=== PATIENT | male | born 1970 | race African-American/Black ===

== ENCOUNTER 2024-08-16 05:51 | Emergency (ER) | payer OTHER, SELFPAY ==
[2024-08-16 05:59] VITALS: BP 198/114; PULSE 118; RESP 20; TEMP 36.5; O2SAT 96
[2024-08-16 08:25] LABS: Glucose Point of Care 116 mg/dl (65-105)
[2024-08-16 08:27] VITALS: O2SAT 99
[2024-08-16 08:28] VITALS: BP 192/123; PULSE 91; RESP 16; O2SAT 97
[2024-08-16] MEDS: levETIRAcetam 500 MG TABLET 1000 MG PO (08:33)
[2024-08-16] MEDS: LOSARTAN POTASSIUM 50 MG TABLET PO (08:33)
--- NOTE | 2024-08-16 08:51 | PC.NURSE ---
Called care coordination for cab voucher for pt.
[2024-08-16 08:52] VITALS: BP 176/117; PULSE 81; RESP 16; TEMP 36.4; O2SAT 100
--- NOTE | 2024-08-16 09:08 | PC.NURSE ---
Pt given bus tokens from [employer] in care coordination.
--- NOTE | 2024-08-16 09:09 | PCCCNOTE ---
Pt needed transportation assistance; 2 [employer] tokens provided along with instructions (#19 to [facility] then #4 to [facility]) to get pt home.
--- NOTE | 2024-08-16 09:13 | ED_ITS ---
HPI - Seizure General Chief Complaint: Seizure Stated Complaint: seizure Time Seen by Provider: 08/16/24 07:21 History of Present Illness HPI Narrative: Patient with history of seizures who has been out of his medications for 2 months, including for his blood pressure and seizures, had a seizure while at work, believes that it was witnessed, does not think he hit his head, does not have pain anywhere except for his extremities which feels sore which are in line with his usual seizures. Related Data Allergies Allergy/AdvReac Type Severity Reaction Status Date / Time No Known Allergies Allergy Verified 08/16/24 08:26 Review of Systems Review of Systems: All systems reviewed & are unremarkable except as noted in HPI and below Exam Narrative: EXAMINATION OF ORGAN SYSTEMS/BODY AREAS: Constitutional: Vital signs per nursing GENERAL:[No acute distress, non-toxic appearing.] HEAD: Normal with no signs of head trauma. EYES: EOMI, conjunctiva normal ENT: Hearing grossly intact; tongue laceration left-sided LUNGS: Nonlabored breathing. HEART: [Regular rate and rhythm] ABD: [Soft], [nontender to palpation] EXT: Normal range of motion SKIN: [No rashes or lesions.] NEURO: [Alert and oriented x 3. No gross focal sensory or strength deficits.] Clear speech, normal gait PSYCH: Normal affect Course Vital Signs Vital signs: Vital Signs Temperature 97.7 F 08/16/24 05:59 Pulse Rate 118 H 08/16/24 05:59 Respiratory Rate 20 08/16/24 05:59 Blood Pressure 198/114 H 08/16/24 05:59 Pulse Oximetry 96 08/16/24 05:59 Oxygen Delivery Room Air 08/16/24 05:59 Temperature 97.6 F 08/16/24 08:52 Pulse Rate 81 08/16/24 08:52 Respiratory Rate 16 08/16/24 08:52 Blood Pressure 176/117 H 08/16/24 08:52 Pulse Oximetry 100 08/16/24 08:52 Oxygen Delivery Room Air 08/16/24 08:27 MDM - Seizure MDM Narrative Medical decision making narrative: Patient with seizure likely from being out of medication and asymptomatic hypertension, also out of meds. No signs or symptoms of end organ dysfunction; no chest pain or shortness of breath, neurological deficits, severe headaches, visual disturbance, oliguria, or symptoms of dissection/AAA). Does have a small tongue laceration. Long-term risks of hypertension, especially uncontrolled, were discussed including increased risks of kidney disease, vascular disease, stroke and heart disease. He was on losartan in the past so I will restart him on this, patient expressed understanding of the instructions and strongly advised to follow-up with PMD for further management. He is loaded with Keppra here, has been observed for several hours without repeat seizures, I will refill his Keppra. Return precautions are discussed. Patient agreeable to this plan. Blood sugar is normal here. Lab Data Labs: Lab Results 08/16/24 Range/Units 08:22 POC Capillary Glucose 116 H (65-105) mg/dl Discharge Plan Discharge Clinical Impression: Generalized seizure, Hypertension Patient Disposition: Home, Self-Care Condition: Stable Instructions: Epilepsy (ED), Hypertension (ED) Additional Instructions: Please follow up with your doctor in the next 2-3 days; please make sure to start taking your medications again. You can always return for any further issues. Patient Language: Guinean Prescriptions: New levetiracetam [Keppra] 500 mg tablet 500 mg PO BID Qty: 60 0RF losartan 50 mg tablet 50 mg PO DAILY Qty: 30 0RF Follow-up/Referrals: UNKNOWN,DOCTOR [Primary Care Provider] - Stand Alone Forms: Work/School Release IP
--- OUTSIDE RECORDS SUMMARY | 2024-08-16 12:17 | XMS_ITS | Data Portability ---
Author Organization [facility] RUSSELLScott ParksSouth [place] Address [address] [place] [address] Care Team Providers Care Investment Associate Name Role Phone EZE ELY Primary Care Provider [phone] Assessment No assessment recorded. Plan of Treatment Reminders Order Date Submit Date Provider Last Modified By Organization Details Last Modified Time Details Appointments None recorded . Lab HbA1c (hemoglo bin A1c), blood 2017 018 [facility], [address] [place] [address], [address], [place], [address], 8 11:21:03 PSA, serum or plasma 2017 018 [facility], [address] [place] [address], [address], [place], [address], 8 11:19:27 CT + NG + TV, DNA, urine/sw ab 2017 018 [facility], [address] [place] [address], [address], [place], [address], 8 11:18:52 HIV 1+2 AB + HIV 1 p24 Ag, qualitat vivek immunoas say, serum 2017 018 [facility], [address] [place] [address], [address], [place], [address], 8 11:18:53 RPR (rapid plasma reagin), serum 2017 018 [facility], [address], [address], [place], [address], 8 11:18:52 hepatiti s C Ab, signal-t o-cutoff , serum or plasma 2017 018 [facility], [address], [address], [place], [address], 8 11:18:52 CMP, serum or plasma 2017 018 [email or web address] [facility], [address], [address], [place], [address], 9 16:03:32 lipid panel, serum 2017 018 [facility], [address], [address], [place], [address], 8 11:18:53 microalb umin/cre atinine, mass ratio, urine 2017 018 [facility], [address], [address], [place], [address], 8 11:18:51 PSA, total, serum or plasma 2018 019 [facility], [address], [address], [place], [address], 9 18:28:54 CMP, serum or plasma 2018 019 [email or web address] [facility], [address], [address], [place], [address], 0 09:27:01 CBC 2018 019 [facility], [address], [address], [place], [address], 18:28:53 lipid panel, serum 2018 019 [facility], [address], [address], [place], [address], 18:28:53 PSA, total, serum or plasma 2021 [facility], [facility], [address], [place], [address], 12:55:47 CT + NG RNA, PCR, unspecif ied specimen 2021 [facility] MUR[facility], [address] [place], [place] [address], [address], [place], [address], 12:55:47 HIV 1 + 2, meaningf ul use set 2021 [facility] BENJAMIN, [address] [place] [address] [address], [address], [place], [address], 12:55:46 RPR (rapid plasma reagin), serum 2021 [facility] BENJAM[facility], [address] [place], [place] [address], [address], [place], [address], 12:55:46 vaginal pathogen s panel, NAOMIE+prob e, vaginal fluid 2021 [facility] BENJAM[facility], [address] [place] [address] [address], [address], [place], [address], 12:55:47 hepatiti s C Ab, signal-t o-cutoff , serum or plasma 2021 [facility], [address] [place], [place] [address], [address], [place], [address], 12:55:46 HBsAg (hepatit is B surface Ag), EIA, serum 2021 [facility] JEANWARP, [address], [address], [place], [address], 12:55:47 CMP, serum or plasma 2021 [facility], [address] [facility] [address], [address], [place], [address], 2 08:44:01 CBC 2021 [facility], [address] [facility] [address], [address], [place], [address], 2 12:55:46 lipid panel, serum 2021 [facility], [address] [address], [address], [place], [address], 2 12:55:46 HIV 1 + 2, meaningf ul use set 2021 [facility], [facility] [address], [address], [place], [address], 3 15:09:16 CT + NG RNA, PCR, unspecif ied specimen 2021 [facility], [address] [facility], [address], [place], [address], 3 15:09:10 RPR (rapid plasma reagin), serum 2021 022 [facility], [facility], [address], [place], [address], 3 15:09:15 chlamydi a trachoma tis + neisseri a gonorrho eae + trichomo nakia vaginali s DNA panel, NAOMIE+prob e, unspecif ied specimen 2021 [facility], [address] [place] [address] [address], [address], [place], [address], 3 15:09:10 hepatiti s C Ab, signal-t o-cutoff , serum or plasma 2021 [facility], [address] [place] [address] [address], [address], [place], [address], 3 15:09:09 HBsAg (hepatit is B surface Ag), EIA, serum 2021 [facility], [address] [place] [address], [address], [place], [address], 3 15:09:14 PSA, total, serum or plasma 2021 [facility], [address] [place] [address], [address], [place], [address], 3 15:09:14 noninvas vivek colorect al cancer DNA + occult blood screenin g, QL, stool 2021 [facility] (Cologuard Orders Only), [address], [address], [place], [address], 3 11:35:55 CMP, serum or plasma 2021 [facility], [address] [place] [address] [address], [address], [place], [address], 3 15:09:12 CBC 2021 022 [facility], [address] [facility], [address], [place], [address], 3 15:09:15 lipid panel, serum 2021 022 [facility], [address] [facility], [address], [place], [address], 3 15:09:12 TSH + free T4, serum 2021 022 [facility], [address] [facility], [address], [place], [address], 3 15:09:11 Referral dermatol ogist referral 2018 019 narda Adams MD ([facility], Dermatology), [address] [place], [address], 9 15:16:22 cardiolo gist referral - Please call patient to schedule appt. Thank you 2018 019 [place], [address] [facility], [address], [address], 0 10:57:07 sleep study referral - Please call patient to schedule appt. Thank you 2018 019 [facility], [address] [place], [address], 0 11:58:39 neurolog ist referral 2023 024 [email or web address] [facility], [address] [facility], [address], [address], 4 05:24:48 dermatol ogist referral 2023 024 edwardo Adams MD ([facility]erm[facility]), [address] [facility], [place], [address], 4 17:47:20 pulmonol ogist referral 2023 024 edwardo Piña MD, [address] [place], [address], 4 17:47:19 Procedures None recorded . Surgeries None recorded . Imaging XR, chest, 2 view 2021 022 [facility] ([facility]), [address] [place], [address], 09:49:15 XR, chest 2021 022 [facility] ([facility]), [address] [place], [address], 2 09:39:49 Medication Orders triamcin olone acetonid e 0.1 % topical cream 2017 018 [facility], [address] [place], [place], [id number], 2 12:12:23 lisinopr il 10 mg-hydro chloroth iazide 12.5 mg tablet [email or web address] [place] [address] [facility], [address] [place], [place], [id number], 2 12:54:29 omeprazo le 20 mg capsule, delayed release 2018 019 [facility] #89101, [address] [place], [place], [id number], 2 10:54:51 cetirizi ne 10 mg tablet 2018 019 [facility] #64937, [address] [place], [place], [id number], 2 12:12:08 lisinopr il 10 mg-hydro chloroth iazide 12.5 mg tablet [address], [address] [place], [place], [id number], 2 12:54:29 losartan 50 mg-hydro chloroth iazide 12.5 mg tablet [address], [address] [place], [place], [id number], 4 17:43:48 triamcin olone acetonid e 0.1 % topical cream 2023 024 [facility] [employer] [facility], [address] [place], [place], [id number], 4 17:53:19 losartan 50 mg-hydro chloroth iazide 12.5 mg tablet 2023 024 [facility] [employer] [facility]55, [address] [place], [place], [id number], 4 17:53:16 amlodipi ne 10 mg tablet 2023 024 [facility] [employer] [facility]270, [address] [place], [place], [id number], 4 17:53:17 Patient TargetsNo targets recorded. Patient Instructions Encounter Date Encounter Id Patient Instructions Last Modified By Organization Details Last Modified Time 06/22/2018 [id number] learning about high blood pressure [email or web address] Not available 06/22/2018 11:16:56 high blood pressure: care instructions [email or web address] Not available 06/22/2018 11:16:56 dash diet: care instructions eewig Not available 06/22/2018 11:16:56 08/11/2022 [id number] deciding about using medicines to quit smoking [email or web address] Not available 08/11/2022 11:18:22 Quitting Tobacco : Care Instructions [email or web address] Not available 08/11/2022 11:18:23 A healthy lifestyle: care instructions [email or web address] Not available 08/11/2022 11:18:23 learning about high blood pressure [email or web address] Not available 08/11/2022 11:18:22 body mass index: care instructions [email or web address] Not available 08/11/2022 11:18:22 learning about healthy weight [email or web address] Not available 08/11/2022 11:18:23 01/24/2024 [id number] deciding about using medicines to quit smoking [email or web address] Not available 01/24/2024 17:53:09 Quitting Tobacco : Care Instructions [email or web address] Not available 01/24/2024 17:53:09 epilepsy: care instructions [email or web address] Not available 01/24/2024 17:53:09 rash: care instructions [email or web address] Not available 01/24/2024 17:53:09 learning about high blood pressure [email or web address] Not available 01/24/2024 17:53:09 Reason for Referral Sleep Study Referral for Hyp ersomnia with sleep apnea Please call patient to schedule appt. Thank you Referring Physician: Eze Ely, Internal Medicine, Encounter Date: 07/04/2019 Health Lead Referral for E ruption Referring Physician: Eze Ely Internal Medicine, Encounter Date: 07/04/2019 Press Cleaner Referral for Fa ismael history of ischemic heart disease Please call patient to schedule appt. Thank you Referring Physician: Eze Ely, Internal Medicine, Encounter Date: 07/04/2019 Neurologist Referral for Sei zure disorder Referring Physician: Eze Ely Internal Medicine, Encounter Date: 01/24/2024 Solid Waste Landfill Technician Referral for D isorder of lung Cavitary lesion CT angio CH[facility] Jul 2023. Normal CXR [facility] less than one month prior Referring Physician: Eze Ely Internal Medicine, Encounter Date: 01/24/2024 Health Lead Referral for E ruption Referring Physician: Eze Ely, Internal Medicine, Encounter Date: 01/24/2024 Results Created Date Observation Date Name Description Value Unit Range Abnormal Flag Note LastModifiedBy Organization Detail LastModifiedTime 08/14/2023 COLOG UARD cologuard result Cancel led - Order d not applic able Not Available [facility] (Cologuard Orders Only) [address], [place], [address], 08/14/2023 11:35:55 09/22/19 23 09/23/2022 HCV ANTIB MARA hep C virus Ab <0.1 s/co_ ratio 0.0-0. 9 Negat vivek: < 0.8 Indet ermin ate: 0.8 - 0.9 Posit vivek: > 0.9 HCV antib mara alone does not diffe renti ate betwe en previ ous resol pia infec tion and activ e infec tion. The CDC and curre nt clini [place] guide lines recom mend that a posit vivek HCV antib mara resul t be follo wed up with an HCV RNA test to suppo rt the diagn osis of acute HCV infec tion. [facility] offer s Hepat itis C Virus (HCV) RNA, Diagn osis, NAOMIE (2763 40) and Hepat itis C Virus (HCV) Antib mara with refle x to Quant itati ve Real- time PCR (7655 50). Not Available [facility] ([facility]) [address] [place], [address], 09/26/2022 15:09:09 09/22/19 23 09/26/2022 CT, NG, TRICH VAG BY NAOMIE chlamydia by NAOMIE Negati ve negati ve Not Available [facility] ([facility]) [address] [facility], [place], [address], 09/26/2022 15:09:10 09/22/19 23 09/26/2022 CT, NG, TRICH VAG BY NAOMIE gonococcus by NAOMIE Negati ve negati ve Not Available [facility] ([facility]) [address] [place], [address], 09/26/2022 15:09:10 09/22/1909/26/2022 CT, NG, TRICH VAG BY NAOMIE trich vag by NAOMIE Positi ve negati ve abnormal Not Available [facility] ([facility]) [address] [facility], [place], [address], 09/26/2022 15:09:10 09/22/19 23 09/26/2022 CHLAM YDIA/ GC AMPLI FICAT ION chlamydia trachomatis, NAOMIE - Dupli jostin proce dure order ed. Not Available [facility] ([facility]) [address] [facility], [place], [address], 09/26/2022 15:09:10 09/22/19 23 09/26/2022 CHLAM YDIA/ GC AMPLI FICAT ION neisseria gonorrhoeae, NAOMIE - Dupli jostin proce dure order ed. Not Available [facility] ([facility]) [address] [place], [address], 09/26/2022 15:09:10 09/22/1909/23/2022 TSH+F REE T4 TSH 2.990 uIU/m L 0.450- 4.500 Not Available [facility] ([facility]) [address] [place], [address], 09/26/2022 15:09:11 09/22/1909/23/2022 TSH+F REE T4 T4,free(dire ct) 1.25 NG/dL 0.82-1 .77 Not Available [facility] ([facility]) [address] [place], [address], 09/26/2022 15:09:11 09/22/19 23 09/23/2022 LIPID PANEL WITH LDL/H DL RATIO cholesterol, total 197 mg/dL 100-19 9 Not Available [facility] ([facility]) [address] [place], [address], 09/26/2022 15:09:12 09/22/19 23 09/23/2022 LIPID PANEL WITH LDL/H DL RATIO triglyceride s 180 mg/dL 0-149 above high normal Not Available [facility] ([facility]) [address] [place], [address], 09/26/2022 15:09:12 09/22/19 23 09/23/2022 LIPID PANEL WITH LDL/H DL RATIO HDL cholesterol 29 mg/dL >39 below low normal Not Available [facility] ([facility]) [address] [place], [address], 09/26/2022 15:09:12 09/22/19 23 09/23/2022 LIPID PANEL WITH LDL/H DL RATIO VLDL cholesterol [place] 33 mg/dL 5-40 Not Available [facility] ([facility]) [address] [place], [address], 09/26/2022 15:09:12 09/22/19 23 09/23/2022 LIPID PANEL WITH LDL/H DL RATIO LDL chol calc ([facility]) 135 mg/dL 0-99 above high normal Not Available [facility] ([facility]) [address] [place], [address], 09/26/2022 15:09:12 09/22/19 23 09/23/2022 LIPID PANEL WITH LDL/H DL RATIO LDL/HDL ratio 4.7 ratio 0.0-3. 6 above high normal LDL/H DL Ratio Men Women 1/2 Avg.R isk 1.0 1.5 Avg.R isk 3.6 3.2 2X Avg.R isk 6.2 5.0 3X Avg.R isk 8.0 6.1 Not Available [facility] ([facility]) [address] [place], [address], 09/26/2022 15:09:12 09/22/19 23 09/23/2022 COMP. METAB OLIC PANEL (14) glucose 109 mg/dL 70-99 above high normal Not Available [facility] ([facility]) [address] [facility] [place], [address], 09/26/2022 15:09:12 09/22/19 23 09/23/2022 COMP. METAB OLIC PANEL (14) BUN 13 mg/dL 6-24 Not Available [facility] ([facility]) [address] [facility] [place], [address], 09/26/2022 15:09:12 09/22/19 23 09/23/2022 COMP. METAB OLIC PANEL (14) creatinine 1.45 mg/dL 0.76-1 .27 above high normal Not Available [facility] ([facility]) [address] [facility] [place], [address], 09/26/2022 15:09:12 09/22/19 23 09/23/2022 COMP. METAB OLIC PANEL (14) eGFR 59 mL/mi n/1.7 3 >59 below low normal Not Available [facility] ([facility]) [address] [facility] [place], [address], 09/26/2022 15:09:12 09/22/19 23 09/23/2022 COMP. METAB OLIC PANEL (14) BUN/creatini ne ratio 9 9-20 Not Available [facility] ([facility]) [address] [facility] [place], [address], 09/26/2022 15:09:12 09/22/19 23 09/23/2022 COMP. METAB OLIC PANEL (14) sodium 141 mmol/ L 134-14 4 Not Available [facility] ([facility]) [address] [facility] [place], [address], 09/26/2022 15:09:12 09/22/19 23 09/23/2022 COMP. METAB OLIC PANEL (14) potassium 4.0 mmol/ L 3.5-5. 2 Not Available [facility] ([facility]) [address] [place], [address], 09/26/2022 15:09:12 09/22/19 23 09/23/2022 COMP. METAB OLIC PANEL (14) chloride 103 mmol/ L 96-106 Not Available [facility] ([facility]) [address] [place], [address], 09/26/2022 15:09:12 09/22/19 23 09/23/2022 COMP. METAB OLIC PANEL (14) carbon dioxide, total 25 mmol/ L 20-29 Not Available [facility] ([facility]) [address] [place], [address], 09/26/2022 15:09:12 09/22/19 23 09/23/2022 COMP. METAB OLIC PANEL (14) calcium 9.1 mg/dL 8.7-10 .2 Not Available [facility] ([facility]) [address] [place], [address], 09/26/2022 15:09:12 09/22/19 23 09/23/2022 COMP. METAB OLIC PANEL (14) protein, total 7.2 g/dL 6.0-8. 5 Not Available [facility] ([facility]) [address] [place], [address], 09/26/2022 15:09:12 09/22/19 23 09/23/2022 COMP. METAB OLIC PANEL (14) albumin 4.4 g/dL 4.0-5. 0 Not Available [facility] ([facility]) [address] [place], [address], 09/26/2022 15:09:12 09/22/19 23 09/23/2022 COMP. METAB OLIC PANEL (14) globulin, total 2.8 g/dL 1.5-4. 5 Not Available [facility] ([facility]) [address] [place], [address], 09/26/2022 15:09:12 09/22/19 23 09/23/2022 COMP. METAB OLIC PANEL (14) A/G ratio 1.6 1.2-2. 2 Not Available [facility] ([facility]) [address] [facility], [place], [address], 09/26/2022 15:09:12 09/22/19 23 09/23/2022 COMP. METAB OLIC PANEL (14) bilirubin, total 0.3 mg/dL 0.0-1. 2 Not Available [facility] ([facility]) [address] [facility] [place], [address], 09/26/2022 15:09:12 09/22/19 23 09/23/2022 COMP. METAB OLIC PANEL (14) alkaline phosphatase 89 IU/L 44-121 Not Available [facility] ([facility]) [address] [facility], [place], [address], 09/26/2022 15:09:12 09/22/19 23 09/23/2022 COMP. METAB OLIC PANEL (14) AST (SGOT) 30 IU/L 0-40 Not Available [facility] ([facility]) [address] [facility], [place], [address], 09/26/2022 15:09:12 09/22/19 23 09/23/2022 COMP. METAB OLIC PANEL (14) ALT (SGPT) 26 IU/L 0-44 Not Available [facility] ([facility]) [address] [facility], [place], [address], 09/26/2022 15:09:12 09/22/19 23 09/23/2022 HBSAG SCREE N HBsAg screen Negati ve negati ve Not Available [facility] ([facility]) [address] [facility], [place], [address], 09/26/2022 15:09:13 09/22/19 23 09/23/2022 PROST ATE-S PECIF IC AG prostate specific Ag 0.6 NG/mL 0.0-4. 0 Marina ECLIA metho dolog y. Accor ding to the Ameri can Urolo gical Assoc iatio n, Serum PSA shoul d decre ase and remai n at undet ectab le level s after radic al prost atect jeniffer. The AUA defin es bioch emica l recur rence as an initi al PSA value 0.2 ng/mL or great er follo wed by a subse quent confi rmato ry PSA value 0.2 ng/mL or great er. Value s obtai sarah with diffe rent assay metho ds or kits canno t be used inter colunga eably . Resul ts canno t be inter prete d as absol bad river band evide nce of the prese nce or absen ce of aaron caraballo se. Not Available [facility] ([facility]) [address] [place], [address], 09/26/2022 15:09:14 09/22/1909/23/2022 RPR, RFX QN RPR/C ONFIR M TP RPR Non Reacti ve nonrea ctive Not Available [facility] ([facility]) [address] [place], [address], 09/26/2022 15:09:15 09/22/1909/23/2022 CBC, PLATE LET, NO DIFFE RENTI AL WBC 7.9 x10e3 /uL 3.4-10 .8 Not Available [facility] ([facility]) [address] [place], [address], 09/26/2022 15:09:15 09/22/1909/23/2022 CBC, PLATE LET, NO DIFFE RENTI AL RBC 5.38 x10e6 /uL 4.14-5 .80 Not Available [facility] ([facility]) [address] [place], [address], 09/26/2022 15:09:15 09/22/19 09/23/2022 CBC, PLATE LET, NO DIFFE RENTI AL hemoglobin 16.4 g/dL 13.0-1 7.7 Not Available [facility] ([facility]) [address] [facility], [place], [address], 09/26/2022 15:09:15 09/22/19 23 09/23/2022 CBC, PLATE LET, NO DIFFE RENTI AL hematocrit 49.5 % 37.5-5 1.0 Not Available [facility] ([facility]) [address] [facility], [place], [address], 09/26/2022 15:09:15 09/22/1909/23/2022 CBC, PLATE LET, NO DIFFE RENTI AL MCV 92 fL 79-97 Not Available [facility] ([facility]) [address] [facility], [place], [address], 09/26/2022 15:09:15 09/22/19 23 09/23/2022 CBC, PLATE LET, NO DIFFE RENTI AL MCH 30.5 pg 26.6-3 3.0 Not Available [facility] ([facility]) [address] [facility], [place], [address], 09/26/2022 15:09:15 09/22/19 23 09/23/2022 CBC, PLATE LET, NO DIFFE RENTI AL MCHC 33.1 g/dL 31.5-3 5.7 Not Available [facility] ([facility]) [address] [facility], [place], [address], 09/26/2022 15:09:15 09/22/1909/23/2022 CBC, PLATE LET, NO DIFFE RENTI AL RDW 13.3 % 11.6-1 5.4 Not Available [facility] ([facility]) [address] [place], [address], 09/26/2022 15:09:15 09/22/1909/23/2022 CBC, PLATE LET, NO DIFFE RENTI AL platelets 222 x10e3 /uL 150-45 0 Not Available [facility] ([facility]) [address] [facility], [place], [address], 09/26/2022 15:09:15 09/22/19 23 09/23/2022 HIV AB/P2 4 AG WITH REFLE X HIV Ab/P24 Ag screen Non Reacti ve nonrea ctive HIV Negat vivek HIV-1 /HIV- 2 antib odies and HIV-1 p24 antig en were NOT detec thiago. There is no labor atory evide nce of HIV infec tion. Not Available [facility] ([facility]) [address] [facility], [place], [address], 09/26/2022 15:09:16 09/22/1909/23/2022 LITHO LINK CKD PROGR AM interpretati on Note ----- ----- ----- ----- ----- ----- - CHRON IC KIDNE Y DISEA SE: EGFR, BLOOD PRESS URE, AND PROTE INURI A ASSES SMENT We presu me eGFR has been less than 60 mL/mi n/1.7 3mE2 on at least two occas ions space d at least 3 month s apart . Curre nt eGFR is 59 mL/mi n/1.7 3mE2 corre spond ing to CKD stage 3a. Potas sium is withi n goal, 4.0 mmol/ L. EGFR, BLOOD PRESS URE, AND PROTE INURI A TREAT MENT SUGGE STION S - Guide lines recom mend a targe t blood press ure of 120/8 0 mmHg or less to reduc e cardi ovasc ular risk and CKD progr essio n. Asses sment of album inuri a (urin e album in:cr eatin ine ratio or urine prote in:cr eatin ine ratio prefe rred) is recom anjana d at least annua lly in CKD patie nts for stagi ng and disea se progn osis. EGFR, BLOOD PRESS URE, AND PROTE INURI A FOLLO W-UP - fasti ng Renal Panel withi n 12 month s; Spot Urine Panel is recom anjana d by guide lines , at least yearl y; BONE and WASHTUB WORKER AL ASSES SMENT Calci um is withi n goal, 9.1 mg/dL . Carbo n Dioxi de is withi n goal, 25 mmol/ L. Guide lines recom mend the measu remen t of 25-hy droxy vitam in D in patie nts with CKD. BONE and WASHTUB WORKER AL TREAT MENT CHAD RENO S - Inter preta tions requi re simul taneo us measu remen ts of serum calci um and phosp horus . BONE and WASHTUB WORKER AL FOLLO W-UP - fasti ng PTH with Renal Panel and 25-Hy droxy Vitam in D are recom anjana d by guide lines , at least yearl y; LIPID S ASSES SMENT LDL-C is high, 135 mg/dL . Trigl yceri de is borde rline high, 180 mg/dL . Non-H DL Mariana stero l is high, 168 mg/dL . HDL-C is low, 29 mg/dL . LIPID S TREAT MENT CHAD RENO S - Thera peuti c lifes tyle colunga es are alway s valua ble to maint ain optim al blood lipid statu s (diet , exerc ise, weigh t manag ement ). Begin stati n. If stati n alrea dy in use, consi arnie incre asing dose to achie ve at least a 50% LDL reduc tion from basel ine. Moder ate or high inten sity stati n is prefe rred. If stati n canno t be kirsty ated or incre ased, alter nativ es inclu de use of an intes tinal agent (ezet imibe or bile acid seque stran t), niaci n, and/o r fish oil. LIPID S FOLLO W-UP - fasti ng Lipid Panel withi n 3 month s; ANEMI A ASSES SMENT Hemog lobin is sierra l, 16.4 g/dL. Hemog lobin targe t assum es DEEPIKA is not in use. ANEMI A TREAT MENT CHAD RENO S - No speci fic colunga e of treat ment is indic ated at this time. ANEMI A FOLLO W-UP - CBC withi n 12 month s; ----- ----- ----- ----- ----- ----- - DISCL AIMER These asses sment s and treat ment chad reno s are provi ded as a conve nienc e in suppo rt of the physi jamal- patie nt relat ionsh ip and are not inten ded to repla ce the physi jamal' s clini [place] judgm ent. They are deriv ed from natio nal guide lines in addit ion to other evide nce and exper t opini on. The clini jamal shoul d consi arnie this infor matio n withi n the jose xt of clini [place] opini on and the indiv idual patie nt. SEE ALESIA NCE FOR CHRON IC KIDNE Y DISEA SE PROGR AM: Kidne y Disea se Impro ving Globa l Outco mes (KDIG O) clini [place] pract ice guide lines are at http: //kdi go.or g/oneil e/annette andrade/. Natio nal Kidne y Found ation Kidne y Disea se Outco mes Quali ty Initi ative (KDOQ I (TM)) , with its limit ation s and discl aimer s, are at www.k christopher .org/ briana burch/Henry DOQI. This progr am is inten ded for patie nts who have been diagn osed with stage s 3, 4, or pre-d ialys is 5 CKD. It is not inten ded for child manuel, pregn ant patie nts, or trans plant patie nts. Not Available [facility] ([facility]) [address] [facility], [place], [address], 09/26/2022 15:09:13 09/22/19 23 09/23/2022 LITHO LINK CKD PROGR AM pdf . Not Available [facility] ([facility]) [address] [facility], [place], [address], 09/26/2022 15:09:13 09/09/19 20 09/05/2019 polys omnog ernestine No observ ation [facility] ed. [email or web address] [address] [place], [address], 10/01/2019 16:34:08 10/29/1910/27/2019 CPAP titra tion study * No observ ation record ed. [address] [place], [address], 12/06/2019 07:06:06 05/11/2005/11/2022 US, scrot um No observ ation record ed. [address] [facility] [address] [place], [address], 05/12/2022 11:11:28 01/21/2001/20/2023 XR, hand No observ ation record ed. [facility] [address] [place], [address], 01/25/2023 08:43:39 06/26/2006/25/2023 CT, head, w/o contr ast No observ ation record ed. [facility] [address] [place], [address], 06/28/2023 09:38:05 06/26/20 23 06/25/2023 XR, chest No observ ation record ed. [facility] [address] [place], [address], 06/28/2023 09:38:24 07/04/2007/04/2023 XR, chest No observ ation record ed. [address] [place], [address], 07/12/2023 01:40:15 Result Notes None recorded. Problems Name Problem SNOMED Code Status Onset Date Resolution Date Notes Provider Name and Address Organization Details Recorded Time Elevated blood-pr essure reading without diagnosi s of hyperten jian 259153022 Completed 201707/04/2019 Eze Ely MD Attn: Accounting ,[address] [facility], [place], [address] , [place] - [facility] 9 18:17:39 Screenin g for malignan t neoplasm of prostate Active 2017 Not Available [facility] 3 22:13:31 Tobacco dependen ce syndrome 48039997 Active 2017 Not Available [facility] 3 22:13:32 [facility] hyperten jian 68665730 Active 2018 Not Available [facility] 3 22:13:32 Gastroes ophageal reflux disease 376297006 Active 2018 Not Available [facility] 3 22:13:31 Hypersom candice with sleep apnea 12074759 Active 2018 Not Available [facility] 3 22:13:32 Red eye Active 2018 Not Available [facility] 3 22:13:32 Family history of ischemic heart disease 400950677 Active 2018 Not Available [facility] 3 22:13:31 Bronchit is 82792218 Active 2021 Not Available [facility] 3 22:13:31 Body mass index 30+ - obesity 761903225 Active 2021 39 Not Available [facility] 3 22:13:31 Screenin g for malignan t neoplasm of colon Active 2021 Not Available [facility] 3 22:13:31 Seizure disorder 551988154 Active 2023 Eze Ely MD Attn: Accounting ,[address] [facility], [place], [address] , [place] - [facility] 4 17:40:10 Disorder of lung 54481244 Active 2023 DREW cavitary lesion Eze Eyl MD Attn: Accounting ,[address] [facility], [place], [address] , [place] [facility] 4 17:41:13 Sexual exposure 9800973 Active Not Available [facility] 3 22:13:32 Obesity 818990791 Completed 06/22/2018 Kenia Dawson PA-C Attn: Accounting ,[address] , [place], [address] , [place] - [facility] 8 11:17:03 Hydrocel e Active Not Available [facility] 3 22:13:32 Sleep disorder 32928321 Active Not Available [facility] 3 22:13:31 Eruption 788497321 Active Not Available [facility] 3 22:13:31 Problem Notes None recorded. Procedures Surgical History Date Name Laterality Status Provider Name and Address Organization Details Recorded Time Eye Surgery completed Xiao castellanos [place] - [facility] 09/09/2014 16:42:35 Imaging Results Imaging Date Name Status LastModified by Organization Details LastModified Time 09/05/2019 polysomnogram completed [facility] [address] [place], [address], 10/01/2019 16:34:08 10/27/2019 CPAP titration study* completed [address] [place], [address], 12/06/2019 07:06:06 05/11/2022 US, scrotum [address] [facility] [address] [place], [address], 05/12/2022 11:11:28 01/20/2023 XR, hand completed [facility] [address] [place], [address], 01/25/2023 08:43:39 06/25/2023 CT, head, w/o contrast completed [facility] [address] [place], [address], 06/28/2023 09:38:05 06/25/2023 XR, chest completed [facility] [address] [place], [address], 06/28/2023 09:38:24 07/04/2023 XR, chest completed [email or web address] [address], [place], [address], 07/12/2023 01:40:15 Procedure Notes None recorded. Medical Equipment None Reported. Allergies Allergen ID Allergen Name Allergen Category Reaction Reaction Severity Criticality Documentation Date Start Date Code Code System Note Provider Name and Address Organization Details Recorded Time 186443 lisinopri l medicatio n cough moderate Not available 10/27/2021 72228 RxNorm Eze Ely MD Attn: Hannah butts,[address] [facility], [place], [address], [facility] - [facility] 12:46:07 Medications Name Sig Start Date Stop Date Status Note LastModified by Organization Details LastModified Time losartan 50 mg tablet TAKE 1 TABLET BY MOUTH EVERY DAY active Not Available Not Available No t Available amoxicilli n 500 mg capsule 08/10 completed Not Available Not Available Not Available atorvastat in 20 mg tablet active Not Available Not Available Not Available carvedilol 12.5 mg tablet active Not Available Not Available Not Available cetirizine 10 mg tablet Take 1 tablet every day by oral route. 10/27 completed Not Available Not Available Not Available levetirace renteria 500 mg tablet TAKE 1 TABLET BY MOUTH EVERY 12 HOURS active Not Available Not Available No t Available hydrocodon e 5 mg-acetami nophen 325 mg tablet TAKE 1 TABLET BY MOUTH EVERY 6 HOURS NEEDED FOR PAIN 08/10 completed Not Available Not Available Not Available hydrocorti sone 1 % topical ointment APPLY TO THE AFFECTED AREA(S) on abdomen BY TOPICAL ROUTE 2 TIMES PER DAY 06/22 completed Not Available Not Available Not Available metronidaz ole 500 mg tablet TAKE 1 TABLET BY MOUTH TWICE DAILY FOR 7 DAYS active Not Available Not Available No t Available ciprofloxa chaim 500 mg tablet 06/22 completed Not Available Not Available Not Available sulfametho xazole 800 mg-trimeth oprim 160 mg tablet 10/27 completed Not Available Not Available Not Available doxycyclin e monohydrat e 100 mg tablet 08/10 completed Not Available Not Available Not Available triamcinol one acetonide 0.1 % topical cream APPLY THIN LAYER TOPICALLY TO THE AFFECTED AREA TWICE DAILY active Not Available Not Available No t Available meloxicam 7.5 mg tablet 06/22 completed Not Available Not Available Not Available amlodipine 10 mg tablet TAKE 1 TABLET BY MOUTH EVERY DAY active Not Available Not Available No t Available cephalexin 500 mg capsule TAKE ONE CAPSULE BY MOUTH FOUR TIMES DAILY 08/10 completed Not Available Not Available Not Available tobramycin 0.3 % eye drops 06/22 completed Not Available Not Available Not Available triamcinol one acetonide 0.1 % topical ointment 10/27 completed Not Available Not Available Not Available omeprazole 20 mg capsule,de layed release TAKE 1 CAPSULE BY MOUTH EVERY DAY 08/11 completed Not Available Not Available Not Available aspirin 81 mg chewable tablet active Not Available Not Available Not Available hydrocorti sone 0.5 % topical ointment APPLY TO THE AFFECTED AREA(S) BY TOPICAL ROUTE 2 TIMES PER DAY 06/22 completed Not Available Not Available Not Available lisinopril 10 mg-hydroch lorothiazi de 12.5 mg tablet Take 1 tablet every day by oral route. 10/27 completed Cough Not Available Not Available Not Available oxycodone- acetaminop hen 7.5 mg-325 mg tablet TAKE 1 TABLET BY MOUTH EVERY 6 HOURS NEEDED FOR PAIN 01/23 completed Not Available Not Available Not Available levofloxac in 750 mg tablet active Not Available Not Available Not Available methylpred nisolone 4 mg tablets in a dose pack 06/22 completed Not Available Not Available Not Available losartan 50 mg-hydroch lorothiazi de 12.5 mg tablet TAKE 1 TABLET BY MOUTH EVERY DAY active Not Available Not Available No t Available clindamyci n phosphate 1 % topical solution 10/27 completed Not Available Not Available Not Available Anoro Ellipta 62.5 mcg-25 mcg/actuat ion powder for inhalation INHALE 1 PUFF BY MOUTH DAILY active Not Available Not Available No t Available Vitals Date Recorded Body height Body mass index (BMI) Body weight Oxygen saturation Oxygen saturation in Arterial blood by Pulse oximetry Heart rate Body temperature Systolic blood pressure Diastolic blood pressure Provider Name and Address Organization Details Last Updated DateTime 8 177.8 cm 35.7 kg/m2 070208. 5 g 99 % 99 % 110 /min 99.9 [degF] 154 mm[Hg] 96 mm[Hg] Selena Kerns MA [facility] 8 11:07:13 Date Recorded Body weight Body mass index (BMI) Body height Body temperature Oxygen saturation Oxygen saturation in Arterial blood by Pulse oximetry Heart rate Systolic blood pressure Diastolic blood pressure Provider Name and Address Organization Details Last Updated DateTime 9 710871. 65 g 36.7 kg/m2 177.8 cm 98.3 [degF] 98 % 98 % 81 /min 150 mm[Hg] 114 mm[Hg] Cassandra Kelley MA [facility] 9 17:49:51 Date Recorded Body height Body mass index (BMI) Body weight Heart rate Body temperature Oxygen saturation Oxygen saturation in Arterial blood by Pulse oximetry Systolic blood pressure Diastolic blood pressure Provider Name and Address Organization Details Last Updated DateTime 2 177.8 cm 37.9 kg/m2 262642. 39 g 107 /min 98.3 [degF] 98 % 98 % 140 mm[Hg] 90 mm[Hg] Cassandra Kelley MA [facility] 2 12:25:09 Date Recorded Body height Body mass index (BMI) Body weight Body temperature Oxygen saturation Oxygen saturation in Arterial blood by Pulse oximetry Heart rate Systolic blood pressure Diastolic blood pressure Provider Name and Address Organization Details Last Updated DateTime 2 177.8 cm 39 kg/m2 412120. 12 g 98.1 [degF] 98 % 98 % 114 /min 170 mm[Hg] 110 mm[Hg] Cassandra Kelley MA [facility] 2 10:54:26 Date Recorded Body height Body mass index (BMI) Body weight Oxygen saturation Oxygen saturation in Arterial blood by Pulse oximetry Heart rate Systolic blood pressure Diastolic blood pressure Provider Name and Address Organization Details Last Updated DateTime 4 177.8 cm 36.9 kg/m2 969638. 24 g 98 % 98 % 116 /min 160 mm[Hg] 110 mm[Hg] Cassandra Kelley MA [facility] 4 17:08:18 Social History Question Answer Notes LastModified by Organizat ion Details LastModified Time Tobacco Smoking Status Current Every Day Smoker EVANGELIST Unger [facility] 09/09/2014 16:42:36 What Was The Date Of Your Most Recent Tobacco Screening? 01/24/2024 Information not available 01/24/2024 How Much Tobacco Do You Smoke? 0.5 PPD Information not available 07/04/2019 Has Tobacco Cessation Counseling Been Provided? Yes Information not available 01/24/2024 On What Date Was Tobacco Cessation Counseling Provided? 01/24/2024 Information not available 01/24/2024 How Many Years Have You Smoked Tobacco? 19 [email or web address] Information not available 09/09/2014 Do You Or Have You Ever Used Any Other Forms Of Tobacco Or Nicotine? No Information not available 01/24/2024 Sex: Unknown Functional Status None recorded. Mental Status None recorded. Family History Relationship Description Onset Age of this Age Resolved Age Notes LastModified by Organization Details LastModified Time Mother Asthma [email or web address] Not available 16:42:35 Mother Hypertensive disorder [email or web address] Not available 2014 16:42:35 Father Diabetes mellitus [email or web address] Not available 2014 16:42:35 Father Heart disease [email or web address] Not available 2014 16:42:35 Father Hypertensive disorder [email or web address] Not available 2014 16:42:35 Sister Diabetes mellitus [email or web address] Not available 2014 16:42:35 Medical History Condition Response Coronary Artery Disease N Other N High Blood Pressure N Atrial Fibrillation N Kidney or Bladder Problems N Thyroid Problems N GI Problems N Depression N COPD N Blood Clots N Skin Problems N Anemia N Heart Attack (PR) N Anxiety Disorder N Diabetes N Muscle, Joint, or Bone Problems N Seizures/Epilepsy N Acid Reflux (GERD) N Cancer N Stroke N Asthma N Allergies N High Cholesterol N Hepatitis N Liver Disease N Headaches N Osteoporosis N Heart Failure N Past Encounters Encounter ID Performer Location Encounter Start Date Encounter Closed Date Diagnosis/Indication Diagnosis SNOMED-CT Code Diagnosis ICD10 Code [id number] EVANGELIST Magallanes (Adult Med) [address] [place] [address] 09/09/2014 16:20:15 09/09/2014 17:08:41 Sexual exposure 7639143 Screening for malignant neoplasm of prostate 443139817 Obesity 580352927 Hydrocele 31353106 Sleep disorder 62752575 Eruption 212659953 [id number] MD Di Mitchell (Adult Med) [address] [place] [phone] 11/21/2017 12:30:04 11/21/2017 13:55:42 Elevated blood-pressure reading without diagnosis of hypertension 197804296 R03.0 Eruption 608319843 R21 Sleep disorder 05174702 G47.9 Obesity 612628447 E66.9 Screening for malignant neoplasm of prostate 788908847 Z12.5 [id number] CRISTOBAL Sanchez (Adult Med) [address] [place] [phone] 06/22/2018 10:53:30 06/22/2018 11:27:29 Essential hypertension 71070803 I10 Body mass index 30+ - obesity 674597346 Z68.35 Tobacco de pendence syndrome 10868423 F17.200 At [facility] ed risk of sexually transmitted infection 031242508 Z20.2 Screening for malignant neoplasm of prostate 323179293 Z12.5 Acanthosis nigricans 402 113848 L83 [id number] MD Di Mitchell (Adult Med) [address] [place] [phone] 07/04/2019 17:16:31 07/04/2019 18:52:51 Essential hypertension 33208873 I10 Tobacco de pendence syndrome 02427093 F17.200 Eruption 478248656 R21 Screening for malignant neoplasm of prostate 206307177 Z12.5 Sleep disorder 29630034 G47.9 Gastroesop hageal reflux disease 653728059 K21.9 Hypersomni a with sleep apnea 75695175 G47.30 Red eye 99775456 H11.439 Family his tory of ischemic heart disease 482299571 Z82.49 [id number] MD Di Mitchell (Adult Med) [address] [place] [phone] 10/27/2021 11:53:20 10/28/2021 11:06:40 Bronchitis 85574625 J40 Essential hypertension 78507921 I10 Screening for malignant neoplasm of prostate 533117163 Z12.5 Sleep disorder 36260884 G47.9 Tobacco de pendence syndrome 10581952 F17.200 Sexual exposure 9236577 F66 [id number] MD Di Mitchell (Adult Med) [address] [place] [phone] 08/11/2022 10:26:12 08/12/2022 15:23:00 Morbid obesity 597774538 E66.01 Essential hypertension 75636392 I10 Sexual exposure 7233297 F66 Tobacco de pendence syndrome 15460433 F17.200 Body mass index 30+ - obesity 568310453 Z68.39 Screening for malignant neoplasm of prostate 985264298 Z12.5 Screening for malignant neoplasm of colon 460331120 Z12.11 [id number] Eze Ely MD [facility] (Adult Med) [address] [place] [phone] 01/24/2024 17:02:30 01/26/2024 08:06:36 Essential hypertension 15947930 I10 Tobacco de pendence syndrome 09498438 F17.200 Seizure disorder 2863185 02 G40.909 Disorder of lung 0642794 1 J98.4 Eruption 203673710 R21 Health Concerns Section Related Observation LastModified by Organization Detai ls LastModified Time None Recorded Concern Status LastModified by Organization Details LastModified Time None Recorded Advance Directives Directive None Recorded Payers Encounter Date Sequence Insurance Name Policy Number Policy Limon Covered Member ID Limon Member ID Guarantor Name 06/22/[address] [facility] (MEDICAID HMO) [id number] Herson Abilio [id number] Herson Abilio 07/04/[address] [facility] (MEDICAID HMO) [id number] Herson Abilio [id number] Herson Abilio 10/27/2021 1 [facility] (MEDICARE REPLACEMENT/A DVANTAGE - HMO) [id number] Herson Abiilo [id number] Herson Abilio 08/11/[address] [facility] (MEDICAID HMO) [id number] Herson Abilio [id number] Herson Abilio 01/24/[address] [facility] (MEDICAID HMO) [id number] Herson Abilio [id number] Herson Abilio Notes Date Note Type Note Provider Name and Address Organization Details Recorded Time 8 text/html HypertensionReported bypatient.Severity:mild Duration:has noted for months Associated Symptoms:no shortness of breath; no fatigue; no palpitations; no decline in exercise capacity;snoring 48YO AA male presents requesting STD screening and also notes that he was told his BP was elevated, but he attributes it to eating 5 slices of mei this morning and being stressed. He also states he has a recurrent rash on his abdomen that never heals completely and he has been given steroid cream in the past that helps. States that he an an appointment with dermatology in 09/2018 concerning this rash.States that he was told to RTC 4-6 weeks after his last appointment with Dr. Ely for BP check but he never showed up Kenia Dawson PA-C Attn: Accounting,[address] [place], [address], [facility] - [facility] 06/22/2018 12:07:21 9 text/html Could hear rattling in his lungs and used Mucinex to induce cough.. Smokes 10 cigs /d. Snores and stops breathing while asleep. Wakes up choking in the past six months. Pt falls asleep during the day. Also has heartburn frequently. Rash persists on abdomen and buttocks. Has redness in eyes for 4-5 days. Eze Ely MD Attn: Accounting,[address] [place], [address], [facility] - [facility] 07/04/2019 18:31:33 2 text/html Had an URI for past two weeks. Did home Sars-CoV-2 home test that was negative. Had a virtual visit and was prescribed amoxicillin x 10 days. Coughed up blood four days ago, He is a smoker Eze Ely MD Attn: Accounting,[address] [place], [address], [facility] - [facility] 10/27/2021 12:57:28 2 text/html Did not get his labs or CXR from last visit. Needs STD testing Eze Ely MD Attn: Accounting,[address] [place], [address], [facility] 08/11/2022 11:19:07 4 text/html Pt here for f/u of seizure activity x2 May 2023 and presence of DREW 6.[address] cav[address] lesion on CT angio less than one month later. Needs referral to neuro and pulmonary. Ran out of BP meds about four months ago Eze Ely MD Attn: Accounting,[address] [facility], [place], [address], [facility] 01/24/2024 17:54:33
== END 2024-08-16 09:49 | disposition home or self-care (01) ==
LOC: ANHED 08:35
PROVIDERS: Emergency Provider Emergency Medicine
DX: G40.909 Epilepsy, unspecified, not intractable, without status epilepticus (principal); I10 Essential (primary) hypertension; T42.6X6A Underdosing of other antiepileptic and sedative-hypnotic drugs, initial encounter; T46.5X6A Underdosing of other antihypertensive drugs, initial encounter
CPT/HCPCS: 82948; 99283; A9270